=== PATIENT | male | born 1965 | race Caucasian/White ===

== ENCOUNTER 2016-06-29 18:46 | Emergency (ER) | payer OTHER ==
[~2016-06-29] VITALS: Ht 170.2 cm; Wt 79.8 kg
[~2016-06-29 18:46] MED LIST: ATOR10TA65 PO; BENA40TA54 PO; HYDR-1666 PO; IBUP800T25 PO; METH-70 PO; OMEP20CA9 PO
[2016-06-29 19:18] VITALS: Ht 170.2 cm; Wt 79.8 kg
[2016-06-29] MEDS ORDERED: TRAM50TA2 PO (19:30)
[2016-06-29] MEDS ORDERED: AMOX1TAB9 PO (19:36)
--- NOTE | 2016-06-29 19:39 | ERD ---
ER Documentation Chief Complaint Date/Time DATE: 06/29/16 TIME: 19:35 Chief Complaint right earache x 2 weeks. just started atb today HPI 51-year-old male presents to emergency department for complaints of right ear pain for 2 weeks, patient was seen by primary care doctor today, was given antibiotics, just took the first pill today. Patient described pain as throbbing pain, 6/10 scale, mildly better after taking ibuprofen. Patient was diagnosed of otitis media, patient has been having on and off problem with this for the last one year, is supposed to see an ENT specialist but is leaving [place] out of the [place]. Patient is here today since pain is uncontrollable, ibuprofen only helped a little bit. Patient denies any fever or chills. Patient denies any facial swelling. Patient denies any injury in the ear. Patient denies any foreign body sensation in there. Patient denies any problems with hearing. Patient is currently taking Augmentin for the otitis media. ROS All systems reviewed and are negative except as per history of present illness. Medications Home Meds Active Scripts Tramadol HCl (Tramadol HCl) 50 Mg Tablet, 50 MG PO Q6 Y for SEVERE PAIN LEVEL 7- 10, #20 TAB Prov:CHENTE DAHL [employer]LECT[employer]OVEL [employer]PER[employer] 06/29/16 Reported Medications Amoxicillin/Potassium Clav (Amox-Clav 500-125 mg Tablet) Unknown Strength Tab, PO BID for 10 Days, TAB 06/29/16 Methocarbamol* (Robaxin*) 750 Mg Tablet, 750 MG PO BID Y 03/30/13 Hydrocodone Bit/Acetaminophen (Vicodin 5/500 Tablet) 1 Tab Tablet, PO Q6 12/29/12 Omeprazole* (Prilosec*) 20 Mg Capsule.dr, 20 MG PO DAILY 12/06/12 Ibuprofen* (Motrin*) 800 Mg Tab, 1 TAB PO TID 12/06/12 Benazepril Hcl* (Lotensin*) 40 Mg Tablet, 20 MG PO DAILY 12/06/12 Atorvastatin Calcium (Atorvastatin Calcium) 10 Mg Tab, 10 MG PO DAILY 12/06/12 Allergies Allergies: Coded Allergies: No Known Allergy (Unverified , 06/29/16) PMhx/Soc History of Surgery: No Anesthesia Reaction: No Hx Neurological Disorder: No Hx Respiratory Disorders: No Hx Cardiac Disorders: Yes (HTN) Hx Psychiatric Problems: No Hx Miscellaneous Medical Probl: Yes (HIGH CHOLESTEROL) Hx Alcohol Use: No Hx Substance Use: No Hx Tobacco Use: No FmHx Family History: No coronary disease, No diabetes, No other Physical Exam Vitals Vital Signs Date Time Temp Pulse Resp B/P Pulse Ox O2 Delivery O2 Flow Rate FiO2 06/29/16 19:18 98.6 85 20 142/72 98 Physical Exam GENERAL: The patient is well developed and appropriate for usual state of health, in no apparent distress. HEENT: Atraumatic. Ears: Right ear tympanic membranes noted to be perforated with erythema noted surrounding the area. Ear canal is none swelling, no foreign body, no cerumen impaction noted. Normal left tympanic membrane, no erythema or bulging. No left ear canal swelling. No left ear discharge. Nose: normal nasal turbinates, no erythema or swelling. Normal nasal discharge. Throat : oropharynx clear. No tonsillar swelling or tonsillar exudates. No lymphadenopathy. CHEST: Clear to auscultation bilaterally. There are no rales, wheezes or rhonchi. HEART: Regular rate and rhythm. No murmurs, clicks, rubs or gallops. No S3 or S4. ABDOMEN: Soft, nontender and nondistended. Good bowel sounds. No rebound or guarding. No gross peritonitis. No gross organomegaly or masses. No Almonte sign or McBurney point tenderness. BACK: No midline or flank tenderness. EXTREMITIES: Equal pulses bilaterally. There is no peripheral clubbing, cyanosis or edema. No focal swelling or erythema. Full range of motion. Grossly neurovascularly intact. NEURO: Alert and oriented. Cranial nerves 2-12 intact. Motor strength in all 4 extremities with 5/5 strength. Sensation grossly intact. Normal speech and gait. SKIN: There is no apparent rash or petechia. The skin is warm and dry. HEMATOLOGIC AND LYMPHATIC: There is no evidence of excessive bruising or lymphedema. No gross cervical, axillary, or inguinal lymphadenopathy. Procedures/MDM Medical decision making: Patient symptoms is likely consistent with right otitis media. The symptoms of otitis externa or mastoiditis. No symptoms of her body in the ear. There is tympanic membrane perforation most likely from the infection. No foreign body noted in the. No symptoms of sepsis at this time. Patient appears well and is hemodynamically stable. Prescription was given for tramadol for severe pain, is advised to continue Augmentin and ibuprofen. Is advised to see ENT specialist when he can. Patient is advised to follow-up with primary care doctor in 3-4 days for reevaluation of symptoms. Patient was advised to return to emergency department for any worsening symptoms. Departure Diagnosis: Primary Impression: Otitis media Otitis media type: suppurative Laterality: right Chronicity: acute Recurrence: not specified as recurrent Spontaneous tympanic membrane rupture: with spontaneous rupture Qualified Code: H66.011 - Acute suppurative otitis media of right ear with spontaneous rupture of tympanic membrane, recurrence not specified Condition: Stable Patient Instructions: Otitis Media, Abx Tx (Adult) Referrals: ESTHER DUGGAN MD Additional Instructions: CONTINUE AUGMENTIN, SEE ENT SPECIALIST CHENTE DALH NP Jun 29, 2016 19:38
== END 2016-06-29 19:33 | disposition home or self-care (01) ==
LOC: E/R 18:46
DX: H66.011 Acute suppurative otitis media with spontaneous rupture of ear drum, right ear (principal); I10 Essential (primary) hypertension
CPT/HCPCS: 99283

== ENCOUNTER 2016-10-05 13:49 | Emergency (ER) | payer OTHER ==
[~2016-10-05] VITALS: Ht 165.1 cm; Wt 78.0 kg
[~2016-10-05 13:49] MED LIST changes: +AMOX1TAB9 PO; +TRAM50TA2 PO
[2016-10-05 14:32] VITALS: Ht 165.1 cm; Wt 78.0 kg
[2016-10-05] MEDS ORDERED: ASPIRIN 325 MG TAB PO STA (14:47)
[2016-10-05 15:09] LABS: ADD SCAN DIFF NO
[2016-10-05 15:10] LABS: BASOPHILS % 0.4 % (0.0-2.0); EOSINOPHILS # 0.1 10^3/ul (0.0-0.5); HEMATOCRIT 43.3 % (42.0-52.0); HEMOGLOBIN 14.7 g/dl (14.0-18.0); LYMPHOCYTES # 2.6 10^3/ul (0.8-2.9); LYMPHOCYTES % 23.2 % (15.0-51.0); MEAN CORPUSCULAR HEMOGLOBIN 27.9 pg (29.0-33.0); MEAN CORPUSCULAR HGB CONC 33.9 g/dl (32.0-37.0); MEAN CORPUSCULAR VOLUME 82.2 fl (82.0-101.0); MEAN PLATELET VOLUME 10.6 fl (7.4-10.4); MONOCYTE # 1.4 10^3/ul (0.3-0.9); MONOCYTES % 12.1 % (0.0-11.0); NEUTROPHIL # 7.1 10^3/ul (1.6-7.5); NEUTROPHILS % 63.1 % (39.0-77.0); PLATELET COUNT 273 10^3/UL (140-415); RED BLOOD COUNT 5.27 10^6/ul (4.70-6.10); RED CELL DISTRIBUTION WIDTH 14.1 % (11.5-14.5); WHITE BLOOD COUNT 11.3 10^3/ul (4.8-10.8)
[2016-10-05 15:26] LABS: INR 0.92; PROTIME 12.4 Sec (12.2-14.2)
[2016-10-05 15:28] LABS: CHLORIDE 103 mmol/L (97-110); SODIUM 140 mmol/L (135-144)
[2016-10-05 15:29] LABS: POTASSIUM 3.7 mmol/L (3.5-5.1)
[2016-10-05 15:31] LABS: ANION GAP 10 (8-16); BLOOD UREA NITROGEN 15 mg/dl (7-20); CARBON DIOXIDE 31 mmol/L (21-31); CREATININE 0.73 mg/dl (0.61-1.24)
[2016-10-05 15:32] LABS: CALCIUM 9.8 mg/dl (8.4-10.2); GLUCOSE 166 mg/dl (70-220)
--- NOTE | 2016-10-05 15:34 | RADRPT ---
PROCEDURE: XR Chest. CLINICAL INDICATION: Chest pain TECHNIQUE: Chest AP portable. COMPARISON: 12/06/2012 FINDINGS: The mediastinal structures are unremarkable. The heart is normal in size and configuration. The pu lmonary vascularity is normal. The lung quan are unremarkable. No consolidation is identified. The pleural spaces are unremarkable. The axial skeleton is unremarkable. IMPRESSION: No active intrathoracic disease. RPTAT: HGDB .Jong Spain MD, MD Date Time Electronically viewed and signed by .Jong Spain MD, on 10/05/2016 15:34 .B/
[2016-10-05 15:56] LABS: TROPONIN-I < 0.012 ng/ml (0.00-0.12)
[2016-10-05] MEDS ORDERED: ATOR20TA38 PO (16:44)
[2016-10-05] MEDS ORDERED: HYD25 PO (16:45)
[2016-10-05] MEDS ORDERED: ASPI-664 PO (16:45)
[2016-10-05] MEDS ORDERED: BENA40TA41 PO (16:45)
[2016-10-05] MEDS ORDERED: AMLO2.5T78 PO (16:46)
[2016-10-05] MEDS ORDERED: METF500T4 PO (16:46)
[2016-10-05] MEDS ORDERED: RANI150T9 PO (16:53)
[2016-10-05 16:57] VITALS: BP 145/74; PULSE 62; RESP 18; TEMP 98.6
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
== END 2016-10-05 17:03 | disposition home or self-care (01) ==
LOC: E/R 13:49
DX: R07.9 Chest pain, unspecified (principal); I10 Essential (primary) hypertension; E11.9 Type 2 diabetes mellitus without complications; Z79.82 Long term (current) use of aspirin; Z79.84 Long term (current) use of oral hypoglycemic drugs
CPT/HCPCS: 36415; 71010; 80048; 84484; 85025; 85610; 85730; 93005; Z7502; Z7610

== ENCOUNTER 2017-07-03 10:32 | Emergency (ER) | END 2017-07-03 14:21 | disposition home or self-care (01) ==

== ENCOUNTER 2018-04-30 10:54 | Emergency (ER) | END 2018-04-30 12:35 | disposition home or self-care (01) ==